=== PATIENT | female | born 1955 | race Caucasian/White ===

== ENCOUNTER 2020-04-20 13:35 | Emergency (ER) | payer MEDICARE, SELFPAY ==
[2020-04-20 13:54] VITALS: BP 138/63; PULSE 71; RESP 18; TEMP 36.6; O2SAT 97
--- NOTE | 2020-04-20 14:06 | ED.WOUNDLAC ---
HPI - Wound/Laceration General Chief Complaint: Wound/Laceration Stated Complaint: fell left eye laceration Time Seen by Provider: 04/20/20 14:06 Source: patient Mode of arrival: ambulatory Limitations: no limitations History of Present Illness HPI narrative: jordan Goldstein is a 64-year-old female who came to express care after a fall [employer] parking lot where she struck her left forehead and has a vertical 2 cm laceration with controlled bleeding. She has no prior medical history for which she takes medication; she denies loss of consciousness, she does not feel dizzy does not have a headache does not have nausea or vomiting, her left knee is bruised more than her right but has no limitation in moving extremities Related Data Home Medications Medication Instructions Recorded Confirmed cetirizine [Zyrtec] 10 mg DAILY 04/20/20 04/20/20 Allergies Allergy/AdvReac Type Severity Reaction Status Date / Time No Known Allergies Allergy Verified 04/20/20 13:38 Review of Systems Review of Systems: Narrative: CONSTITUTIONAL: Denies fever, chills, sweats. EYES: Denies visual changes, redness, discharge. ENT: Denies rhinorrhea, congestion, sore throat, otalgia. CARDIOVASCULAR: Denies chest pain, palpitations, edema. RESPIRATORY: Denies dyspnea, wheezing, cough GASTROINTESTINAL: Denies abdominal pain, nausea, vomiting, diarrhea. GENITOURINARY: Denies dysuria, hematuria, abnormal discharge SKIN: Denies rash or itching. Vertical laceration over left eye about 2 cm in length; superficial abrasions of knees NEUROLOGIC: Denies numbness, or focal weakness. PSYCHIATRIC: Denies anxiety or depression. [facility] Past Medical History Medical History No active medical problems Family History Family History Other No active medical problems Social History Social History (Updated 04/20/20 @ 14:29 by Maria R Lemon CNP) Smoking status: Never smoker Alcohol intake: never Gender identity (if verbalized by the patient): Female Comments At time of signature, I agree with nursing past medical, surgical, social and family history. There is no relevant family history pertinent to the presenting complaint. Exam Narrative: Exam Narrative: GENERAL: This is a well-nourished, well-developed patient, in mild distress. HEAD: normocephalic, no trauma to head EYES: . Sclera clear/white. Vision is grossly intact. EARS: External ears normal, Hearing grossly intact. no drainage or bruising NOSE: External nose normal without nasal discharge, nares without redness, no rhinorrhea. THROAT: Mucous membranes moist, NECK: Neck supple, non-tender CARDIOVASCULAR: Regular rate and rhythm without murmurs, gallops, or rubs. RESPIRATORY: Clear to auscultation. Breath sounds equal bilaterally. No wheezes, rales, or rhonchi. GASTROINTESTINAL: Abdomen soft, non-tender, SKIN: warm, intact with no suspicious lesions or rash, good texture and turgor. Vertical 2 icentimeter laceration, through superficial skin and subcutaneous fat, controlled bleeding; mild abrasion to both knees with no bleeding NEURO: awake, alert, and oriented to person, place and time. There were no obvious focal neurologic abnormalities. Steady gait EXTREMITIES: Normal range of motion. BACK: Nontender without deformity Course Course Emergency Course: Repair of laceration through left eyebrow Tetanus shot given Urgent care given to patient follow-up with PCP Vital Signs Vital signs: Vital Signs Temperature 97.9 F 04/20/20 13:54 Pulse Rate 71 04/20/20 13:54 Respiratory Rate 18 04/20/20 13:54 Blood Pressure 138/63 04/20/20 13:54 Pulse Oximetry 97 04/20/20 13:54 Temperature 97.9 F 04/20/20 13:54 Pulse Rate 71 04/20/20 13:54 Respiratory Rate 18 04/20/20 13:54 Blood Pressure 138/63 04/20/20 13:54 Pulse Oximetry 97 04/20/20 13:54 P
[2020-04-20] MEDS: TETANUS,DIPHTHERIA,AC PERTUSSIS ADULT (0.5 ML) BOOSTRIX IM (14:14)
== END 2020-04-20 14:39 | disposition home or self-care (01) ==
PROVIDERS: Emergency Provider Nurse Practitioner; PCP Family Medicine
DX: S01.112A Laceration without foreign body of left eyelid and periocular area, initial encounter (principal); W19.XXXA Unspecified fall, initial encounter; Z23 Encounter for immunization
CPT/HCPCS: 12011; 90471; 90715; 99212; G0463

== ENCOUNTER 2020-07-28 09:25 | Outpatient (CLI) | payer MEDICARE, SELFPAY ==
--- NOTE | 2020-07-28 09:35 | ECG_ITS ---
Measurements Intervals [place] Rate: 57 P: -17 ME: 173 QRS: 31 QRSD: 99 T: 39 QT: 393 QTc: 384 Interpretive Statements SINUS BRADYCARDIA BASELINE ARTIFACT- I ,II, III, AVL, V4 NORMAL ECG Electronically Signed On 07-28-2020 10:28:59 CHIROPRACTIC DOCTOR by [place] D.O.
== END 2020-07-28 09:26 | disposition home or self-care (01) ==
PROVIDERS: PCP Internal Medicine; Visit Provider Internal Medicine
DX: I49.1 Atrial premature depolarization (principal)
CPT/HCPCS: 93005

== ENCOUNTER → 2020-09-19 10:56 | Outpatient (CLI) | payer MEDICARE, SELFPAY ==
--- NOTE | ~2020-09-19 | DEXA_ITS ---
Bone Density Report Name: Rivka Goldstein Age: 64 Sex: Female Ethnicity: White Date of : 1955 Indication: postmenopausal; screening for osteoporosis; height loss; Referring Provider: JENNIFER FREEDMAN Study: Bone densitometry was performed. Exam Date: September 19, 2020 Accession number: [id number] Bone Density: Region BMD T-score Z-score Classification Femoral Neck (Left) 0.667 -1.6 0.0 Osteopenia Total Hip (Left) 0.830 -0.9 0.4 Normal Femoral Neck (Right) 0.556 -2.6 -1.0 Osteoporosis Total Hip (Right) 0.704 -1.9 -0.6 Osteopenia Total Hip Mean 0.767 -1.4 -0.1 Osteopenia World Health Organization criteria for BMD impression classify patients as: Normal (T-score at or above -1.0), Osteopenia (T-score between -1.0 and -2.5), or Osteoporosis (T-score at or below -2.5). 10-year Fracture Risk: FRAX not reported because: Some T-score for Spine Total or Hip Total or Femoral Neck at or below -2.5 Clinical Information Provided by Patient: Has used the following medications: Vitamin D, Calcium Patient maximum height was 67 Menopause Age: 40 Drinks caffeinated beverages Onset of menses at age 11 Number of children 2 Impression: The patient has osteoporosis, based on the Right Femoral Neck T-score. Discussion: INCREASED RISK OF FRACTURE. BONE DENSITY IS UNDESIRABLY LOW AT ONE OR MORE SKELETAL SITES, CONSISTENT WITH POSTMENOPAUSAL OSTEOPOROSIS. This patient's lowest T-score meets the World Health Organization's (WHO) criteria for osteoporosis at one or more sites (T-score -2.5 or below). In untreated patients, the risk of osteoporotic fracture increases approximately two-fold for each 1.0 SD decrease in T-score. Low bone density is not the only risk factor for fracture; also consider factors such as patient's age, frailty or poor health, risk of falling, risk of injury, previous osteoporotic fracture, family history of osteoporosis, cigarette smoking, low body weight, etc. Not everyone with low bone mineral density has osteoporosis; osteomalacia and other metabolic bone disorders should also be considered. Patients who have osteoporosis should be evaluated for specific diseases and conditions (secondary causes) that may cause or contribute to bone loss. The [place] [employer] Endocrinologists (AACE) and National Osteoporosis Foundation (NOF) recommend pharmacologic intervention for all postmenopausal women whose T-score is in this range. The patient should follow a healthful lifestyle (good nutrition with adequate calcium and vitamin D, and appropriate weight-bearing exercise). Follow-Up: Consider a repeat BMD and Vertebral Fracture Assessment (VFA) exam in 2 years or sooner if medically necessary, to reassess this patient's status. Reported by: DENICE on 09/19/2020 11:22:00 AM.
--- NOTE | ~2020-09-19 | MM_ITS ---
EXAMINATION: MM screening [facility] BI w darryl HISTORY: Screening TECHNIQUE: Craniocaudal and mediolateral oblique 3-D tomosynthesis images were obtained and synthetic 2-D images were generated. CAD analysis was submitted and interpreted. COMPARISON: No prior mammogram is available for comparison at this institution. BREAST PARENCHYMAL COMPOSITION: There are scattered areas of fibroglandular density. FINDINGS: There is no evidence of suspicious mass, calcification, or architectural distortion to sugg est malignancy in either breast. There has been no suspicious interval change. IMPRESSION: 1. No mammographic evidence of malignancy. 2. Recommend routine screening mammography in one year. BI-RADS Category 1: Negative Reviewed, dictated and finalized at location A. SERVICES SPECIALIST
== END ==
PROVIDERS: PCP Internal Medicine; Visit Provider Internal Medicine
DX: Z12.31 Encounter for screening mammogram for malignant neoplasm of breast (principal); Z78.0 Asymptomatic menopausal state; M85.88 Other specified disorders of bone density and structure, other site; M81.0 Age-related osteoporosis without current pathological fracture; M85.851 Other specified disorders of bone density and structure, right thigh
CPT/HCPCS: 77063; 77067; 77080

== ENCOUNTER → 2021-09-27 08:15 | Outpatient (CLI) | payer MEDICARE, SELFPAY ==
--- NOTE | ~2021-09-27 | CT_ITS ---
EXAMINATION: CT brain wo con DATE: 09/27/2021 08:34 INDICATION: Dizziness and giddiness. TECHNIQUE: Computed tomography (CT) of the head was performed without intravenous contrast. The mA wa s adjusted according to patient size. Iterative reconstruction technique was employed. The dose-lengt h product was 599.57 mGy-cm. COMPARISON: None FINDINGS: There is no intracranial hemorrhage, acute infarction, or abnormal intracranial mass lesion . The ventricles are normal in size. The orbits are normal. There is mild mucosal thickening in the p aranasal sinuses. There are small bilateral mastoid effusions. IMPRESSION: 1. Normal brain. Reviewed, dictated and finalized at location A. NEYMAN PIPE WELDER IMPRESSION: 1. Normal brain.
== END ==
PROVIDERS: PCP Internal Medicine; Visit Provider Internal Medicine
DX: R42 Dizziness and giddiness (principal)
CPT/HCPCS: 70450

== ENCOUNTER 2021-10-02 07:19 | Outpatient (CLI) | payer MEDICARE, SELFPAY ==
--- NOTE | 2021-10-02 08:05 | ECHO_ITS ---
Patient Info Name: Rivka Goldstein Age: 65 years : 1955 Gender: Female Ht: 65 in Wt: 170 lbs BSA: 1.90 m2 HR: 54 bpm BP: 140 / 85 mmHg Technical Quality: Good Exam Date: 10/02/2021 8:20 AM Exam Location: [facility] Patient Status: Outpatient Admit Date: 10/02/2021 Staff Ordering Physician: Odin Rodriguez MD Size Mixer: Chas Cameron, QUINTIN, RT Attending Provider: Odin Rodriguez MD Exam Type: CA echo doppler color flow Study Info Indications R06.02 - Shortness of breath Complete two-dimensional, color flow and Doppler transthoracic echocardiogram is performed. Strain analysis performed. Summary 1. Complete two-dimensional, color flow and Doppler transthoracic echocardiogram is performed. 2. Left ventricular chamber dimension is normal. 3. Left ventricular systolic function is normal, estimated at 55-60%. 4. The left ventricular diastolic function is grade I diastolic dysfunction. 5. E/e' 10 is mildly elevated. 6. Global longitudinal strain is normal at -18.3%. 7. 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 8. Bowing of the interatrial septum to the right by 2D and color flow imaging. Left Ventricle E/e' 10 is mildly elevated. Global longitudinal strain is normal at -18.3%. Left ventricular chamber dimension is normal. Left ventricular systolic function is normal, estimated at 55-60%. The left ventricular diastolic function is grade I diastolic dysfunction. Right Ventricle Right ventricular systolic function is normal and with normal TAPSE 2.0 cm. Right ventricular chamber dimension is normal. Left Atria Left atrial chamber dimension is normal. Right Atria Right atrial chamber dimension is normal. Atrial Septum Interatrial septal aneurysm with no obvious evidence of shunting by color doppler. Bowing of the interatrial septum to the right by 2D and color flow imaging. Aortic Valve The aortic valve is trileaflet. There is no aortic valve stenosis. There is no aortic valve regurgitation. Pulmonic Valve There is no pulmonic regurgitation. Mitral Valve There is no mitral valve stenosis. There is no mitral valve regurgitation. Tricuspid Valve There is no tricuspid valve regurgitation. Pericardium/Pleural There is no pericardial effusion. Inferior Vena Cava Normal inferior vena cava with >50% collapse upon inspiration consistent with normal right atrial pressure, 5 mmHg. Aorta The aortic root size at the sinus of Valsalva is normal. Left Ventricular Outflow Tract Name Value Normal LVOT 2D LVOT Diameter 2.0 cm LVOT Doppler LVOT Peak Gradient 5 mmHg LVOT Mean Gradient 2 mmHg LVOT VTI 27 cm LVOT VTI/AV VTI Ratio 0.9 LVOT Stroke Volume 84 ml LVOT CO 4.7 l/min LVOT CI 2.5 l/min/m2 Mitral Valve Name Mia
== END 2021-10-02 07:20 | disposition home or self-care (01) ==
LOC: ANHCARD 07:22
PROVIDERS: PCP Internal Medicine; Visit Provider Internal Medicine
DX: I49.1 Atrial premature depolarization (principal); I95.1 Orthostatic hypotension
CPT/HCPCS: 93306

== ENCOUNTER → 2021-11-01 12:37 | Outpatient (CLI) | payer MEDICARE, SELFPAY ==
--- NOTE | ~2021-11-01 | MM_ITS ---
EXAMINATION: MM screening [facility] BI w darryl HISTORY: Screening mammogram TECHNIQUE: Craniocaudal and mediolateral oblique 3-D tomosynthesis images were obtained and synthetic 2-D images were generated. CAD analysis was submitted and interpreted. COMPARISON: 09/19/2020 bilateral screening mammogram BREAST PARENCHYMAL COMPOSITION: There are scattered areas of fibroglandular density. FINDINGS: There is no evidence of suspicious mass, calcification, or architectural distortion to sugg est malignancy in either breast. There has been no suspicious interval change. IMPRESSION: 1. No mammographic evidence of malignancy. 2. Recommend routine screening mammography in one year. BI-RADS Category 1: Negative Reviewed, dictated and finalized at location A.
== END ==
PROVIDERS: PCP Internal Medicine; Visit Provider Student in an Organized Health Care Education/Training Program
DX: Z12.31 Encounter for screening mammogram for malignant neoplasm of breast (principal)
CPT/HCPCS: 77063; 77067

== ENCOUNTER → 2022-04-06 05:21 | Outpatient (CLI) | payer MEDICARE, SELFPAY ==
[2022-04-06 11:52] LABS: SARS-CoV-2 RNA PCR Negative
== END ==
PROVIDERS: PCP Internal Medicine; Visit Provider Internal Medicine
DX: R68.89 Other general symptoms and signs (principal); Z20.822 Contact with and (suspected) exposure to COVID-19
CPT/HCPCS: C9803; U0003; U0005

== ENCOUNTER → 2022-12-24 10:24 | Outpatient (CLI) | payer MEDICARE, SELFPAY ==
--- NOTE | ~2022-12-24 | MM_ITS ---
EXAMINATION: MM screening [facility] BI w darryl HISTORY: Screening TECHNIQUE: Craniocaudal and mediolateral oblique 3-D tomosynthesis images were obtained and synthetic 2-D images were generated. CAD analysis was submitted and interpreted. COMPARISON: Comparison to multiple prior studies sequentially, with oldest reviewed study dated 07/2020. BREAST PARENCHYMAL COMPOSITION: There are scattered areas of fibroglandular density. FINDINGS: There is no evidence of suspicious mass, calcification, or architectural distortion to sugg est malignancy in either breast. There has been no suspicious interval change. IMPRESSION: 1. No mammographic evidence of malignancy. 2. Recommend routine screening mammography in one year. BI-RADS Category 1: Negative Reviewed, dictated and finalized at location A.
== END ==
PROVIDERS: PCP Family Medicine; Visit Provider Registered Nurse
DX: Z12.31 Encounter for screening mammogram for malignant neoplasm of breast (principal)
CPT/HCPCS: 77063; 77067

== ENCOUNTER → 2022-12-27 10:14 | Outpatient (CLI) | payer MEDICARE, SELFPAY ==
--- NOTE | ~2022-12-27 | CT_ITS ---
EXAMINATION: CT cervical spine wo con DATE: 12/27/2022 10:31 INDICATION: Disease of spinal cord, unspecified. TECHNIQUE: Computed tomography (CT) of the cervical spine was performed without intravenous contrast. Automated exposure control and iterative reconstruction technique were employed. The dose-length pro duct was 298.26 mGy-cm. COMPARISON: None FINDINGS: The visualized portions of the lung apices demonstrate emphysema and mild scarring. There i s kyphosis of cervical spine. There is 2 mm retrolisthesis of C3 on C4. There are changes of anterior fusion procedure from C4 to C6 with healed interbody bone graft and anterior plate and screws. There is moderately decreased disc height at C3-C4 and severely decreased disc height at C6-C7. The follow ing disc levels are specifically discussed: C2-C3: There is moderate left uncovertebral joint osteoarthritis. There is moderate right and severe left facet joint osteoarthritis. There is moderate left neural foraminal stenosis. There is no centra l canal stenosis. C3-C4: There is severe right and moderate left uncovertebral joint osteoarthritis. There is severe ri ght and moderate left facet joint osteoarthritis. There is moderate bilateral neural foraminal stenos is. There is moderate central canal stenosis. C4-C5: There is severe bilateral uncovertebral joint hypertrophy. There is mild bilateral facet joint osteoarthritis. There is moderate bilateral neural foraminal stenosis. There is mild central canal s tenosis. C5-C6: There is severe bilateral uncovertebral joint hypertrophy. There is moderate bilateral facet j oint hypertrophy. There is moderate right and mild left neural foraminal stenosis. There is mild cent ral canal stenosis. C6-C7: There is severe bilateral uncovertebral joint osteoarthritis. There is mild right and moderate left facet joint osteoarthritis. There is moderate right and mild left neural foraminal stenosis. Th ere is mild central canal stenosis. C7-T1: There is no uncovertebral joint osteoarthritis. There is moderate bilateral facet joint osteoa rthritis. There is mild left neural foraminal stenosis. There is no central canal stenosis. IMPRESSION: 1. Severe cervical spondylosis. 2. Anterior fusion procedure from C4 to C6. Reviewed, dictated and finalized at location A.
== END ==
PROVIDERS: PCP Family Medicine; Visit Provider Nurse Practitioner
DX: G95.9 Disease of spinal cord, unspecified (principal); M47.892 Other spondylosis, cervical region; Z98.1 Arthrodesis status
CPT/HCPCS: 72125

== ENCOUNTER → 2023-02-20 10:16 | Outpatient (CLI) | payer MEDICARE, SELFPAY ==
--- NOTE | ~2023-02-20 | DEXA_ITS ---
Bone Density Report Name: LISSETH THAO Age: 67 Sex: Female Ethnicity: White Date of : 1955 Indication: osteopenia; height loss; prior fracture; postmenopausal Referring Provider: MANDY CUEVA Study: Bone densitometry was performed. Exam Date: February 20, 2023 Accession number: [id number] Bone Density: Region BMD T-score Z-score Classification Femoral Neck (Left) 0.629 -2.0 -0.2 Osteopenia Total Hip (Left) 0.806 -1.1 0.3 Osteopenia Femoral Neck (Right) 0.538 -2.8 -1.0 Osteoporosis Total Hip (Right) 0.696 -2.0 -0.6 Osteopenia Total Hip Mean 0.751 -1.6 -0.2 Osteopenia World Health Organization criteria for BMD impression classify patients as: Normal (T-score at or above -1.0), Osteopenia (T-score between -1.0 and -2.5), or Osteoporosis (T-score at or below -2.5). 10-year Fracture Risk: FRAX not reported because: Some T-score for Spine Total or Hip Total or Femoral Neck at or below -2.5 Previous Exams: Region Exam Age BMD T-score BMD Change BMD Change Date g/cm2 vs Baseline vs Previous Total Hip(Left) 02/20/2023 67 0.806 -1.1 -0.024 -0.024 09/19/2020 64 0.830 -0.9 Total Hip(Right) 02/20/2023 67 0.696 -2.0 -0.009 -0.009 09/19/2020 64 0.704 -1.9 *Denotes significance at 95% confidence level, LSC for Total Hip = 0.027 g/cm2 Clinical Information Provided by Patient: Has had a low trauma fracture Has used the following medications: Fosamax (i.e. alendronate), Vitamin D, Calcium Patient maximum height was 66.0 Menopause Age: 40 Drinks caffeinated beverages Onset of menses at age 11 Number of children 2 Impression: The patient has established osteoporosis, based on the Right Femoral Neck T-score and the existence of a prior fracture. The patient has risk factors, including: previous fracture. No significant bone loss was observed. Discussion: HIGH RISK OF FRACTURE. BONE DENSITY IS UNDESIRABLY LOW AT ONE OR MORE SKELETAL SITES, CONSISTENT WITH POSTMENOPAUSAL OSTEOPOROSIS. This patient's lowest T-score, in a patient who has previously fractured, meets the World Health Organization's (WHO) criteria for severe osteoporosis. In untreated patients, the risk of osteoporotic fracture increases approximately two-fold for each 1.0 SD decrease in T-score. Low bone density is not the only risk factor for fracture; also consider factors such as patient's age, frailty or poor health, risk of falling, risk of injury, previous osteoporotic fracture, family history of osteoporosi
== END ==
PROVIDERS: PCP Family Medicine; Visit Provider Nurse Practitioner
DX: M81.0 Age-related osteoporosis without current pathological fracture (principal)
CPT/HCPCS: 77080

== ENCOUNTER 2023-05-27 15:39 | Outpatient (CLI) | payer MEDICARE, SELFPAY ==
[2023-05-27 17:19] LABS: Anion Gap 8 mmol/L (8-16); Blood Urea Nitrogen 36 mg/dL (7-17); Calcium 9.5 mg/dL (8.4-10.2); Carbon Dioxide 25 mmol/L (22-30); Chloride 104 mmol/L (98-107); Estimated Glomerular Filt Rate > 60; Glucose 85 mg/dL (65-110); Potassium 4.9 mmol/L (3.4-5.0); Sodium 137 mmol/L (137-145)
== END 2023-05-27 15:40 | disposition home or self-care (01) ==
PROVIDERS: PCP Family Medicine; Visit Provider Family Medicine
DX: E87.5 Hyperkalemia (principal)
CPT/HCPCS: 36415; 80048

== ENCOUNTER → 2023-07-03 08:10 | Outpatient (CLI) | payer MEDICARE, SELFPAY ==
--- NOTE | ~2023-07-03 | CT_ITS ---
CT Scan of the Chest without Contrast: Clinical Indication: Lung cancer screening, personal history of nicotine dependence Technique: Contiguous sections were acquired throughout the chest without intravenous contrast. Dose reduction technique was used on this scan by utilizing automated exposure control and iterative recon struction technique. The dose-length product (DLP) was 84.95 mGy-cm. Findings: There is no evidence of any significant mediastinal, hilar or axillary lymphadenopathy. The mediastin al soft tissues appear normal. There is no evidence of pleural or pericardial effusion. Moderate emphysema present. Calcified left upper lobe granuloma present. 3 mm left lower lobe pulmona ry nodule present peripherally. Images through the upper abdomen reveal calcified gallstone. Impression: Lung RADS 2: Benign appearance. 12 month follow-up screening CT advised. Reviewed, dictated and finalized at [facility]. [employer] [employer] Impression: Lung RADS 2: Benign appearance. 12 month follow-up screening CT advised.
== END ==
PROVIDERS: PCP Family Medicine; Visit Provider Family Medicine
DX: Z12.2 Encounter for screening for malignant neoplasm of respiratory organs (principal); Z87.891 Personal history of nicotine dependence
CPT/HCPCS: 71271

== ENCOUNTER 2024-01-24 09:57 | Outpatient (CLI) | payer MEDICARE, SELFPAY ==
--- NOTE | ~2024-01-24 | MM_ITS ---
EXAMINATION: MM screening [facility] BI w darryl HISTORY: Screening mammogram TECHNIQUE: Craniocaudal and mediolateral oblique 3-D tomosynthesis images were obtained and synthetic 2-D images were generated. CAD analysis was submitted and interpreted. COMPARISON: 12/24/2022, 11/01/2021, 09/19/2020 BREAST PARENCHYMAL COMPOSITION:Not Dense. There are scattered areas of fibroglandular density. FINDINGS: No suspicious mass, calcification, or architectural distortion are identified in either bert ast to suggest malignancy. There has been no suspicious interval change. IMPRESSION: No mammographic evidence of malignancy. Recommend routine screening mammography in one year. BI-RADS Category 1: Negative Reviewed, dictated and finalized at location .
== END 2024-01-24 09:58 ==
LOC: MICIMG 09:58
PROVIDERS: PCP Family Medicine; Visit Provider Nurse Practitioner Family
DX: Z12.31 Encounter for screening mammogram for malignant neoplasm of breast (principal)
CPT/HCPCS: 77063; 77067

== ENCOUNTER 2024-10-19 09:55 | Outpatient (CLI) | payer MEDICARE, SELFPAY ==
--- NOTE | ~2024-10-19 | CT_ITS ---
CT Scan of the Chest without Contrast: Clinical Indication: Lung cancer screening, nicotine dependence Technique: Contiguous sections were acquired throughout the chest without intravenous contrast. Dose reduction technique was used on this scan by utilizing automated exposure control and iterative recon struction technique. The dose-length product (DLP) was 121.81 mGy-cm. COMPARISON: 07/03/2023 Findings: There is no evidence of any significant mediastinal, hilar or axillary lymphadenopathy. Mild coronary artery calcification present. There is no evidence of pleural or pericardial effusion. The lungs are clear. No pulmonary nodules or infiltrates are noted. There is moderate emphysema. Images through the upper abdomen reveal calcified gallstones. Impression: Lung RADS 1: Negative. [address] advised. Moderate emphysema. Cholelithiasis. Reviewed, dictated and finalized at [facility]. Impression: Lung RADS 1: Negative. [address] advised. Moderate emphysema. Cholelithiasis.
--- NOTE | ~2024-10-19 | MR_ITS ---
MRI of the lumbar spine Clinical History: Right foot drop Technique: Axial T2-weighted images, and sagittal T1-weighted, T2-weighted, and T2 fat-sat images wer e acquired. Findings: There is no acute fracture identified. There is 9 mm anterolisthesis of L5 over S1. There i s posterior fusion from L4 through S1, bilateral rods and transpedicular screws present. Probable pos terior decompression at L4 and L5. No suspicious bone marrow signal abnormality seen. At L1-L2, there is advanced degenerative disc narrowing. There is mild disc bulge with moderate to ad vanced facet arthropathy. There is mild central canal stenosis. There is severe bilateral neural fora sachin compress. At L2-L3, there is minimal disc bulge with moderate facet arthropathy. There is minimal central canal stenosis. There is minimal bilateral neural foraminal narrowing. At L3-L4, there is mild degenerative disc narrowing. There is disc bulge and severe facet arthropathy , resulting in severe spinal canal stenosis/thecal sac compression. There is moderate right neural fo raminal narrowing, and mild left neural foraminal narrowing. At L4-L5, there is mild disc bulge. No canal stenosis. Neural foramina are probably preserved. At L5-S1, there is disc bulge/uncovering with posterior decompression. No spinal canal stenosis. Ther e is probable moderate to severe bilateral neural foraminal narrowing. Paravertebral soft tissues are otherwise unremarkable. Impression: Postoperative change from L4 through S1, as above, with underlying 9 mm anterolisthesis of L5 over S1 . Moderate to advanced degenerative spondylosis, worst at L3-L4. Please see details above. Reviewed, dictated and finalized at [facility]. Impression: Postoperative change from L4 through S1, as above, with underlying 9 mm anterol isthesis of L5 over S1. Moderate to advanced degenerative spondylosis, worst at L3-L4. Please see óscar hunt above.
== END 2024-10-19 09:56 | disposition home or self-care (01) ==
PROVIDERS: PCP Family Medicine; Visit Provider Family Medicine
DX: Z12.2 Encounter for screening for malignant neoplasm of respiratory organs (principal); Z87.891 Personal history of nicotine dependence; M21.371 Foot drop, right foot; M54.50 Low back pain, unspecified; R29.898 Other symptoms and signs involving the musculoskeletal system; M47.816 Spondylosis without myelopathy or radiculopathy, lumbar region; J43.9 Emphysema, unspecified; K80.20 Calculus of gallbladder without cholecystitis without obstruction
CPT/HCPCS: 71271; 72148

== ENCOUNTER 2024-12-12 10:54 | Outpatient (CLI) | payer MEDICARE, SELFPAY ==
--- OUTSIDE RECORDS SUMMARY | 2024-12-12 11:05 | XMS_ITS | Continuity of Care Document ---
Author Organization [facility] Address [address] [place] [address] [facility] [address] [place] [address] Phone Care Team Providers Care Meat And Seafood Manager Name Role Phone Gwendolyn Michelle Unavailable Unavailable Procedures Procedure Date Eye Exam, New Patient Advance Directives Directive Yes / No Effective Date File Name No Information Encounters Encounter Description Practice Location Reason(s) For Visit Diagnoses Date Provider Providers Copied on Encounter [facility], [id number] [place] [address] [address], [place], [place], [id number], [place] tel:[phone] [facility] No Information [address] [place] , [address], [place], [address], [place]. tel:[phone] Referring Provider: Sammy Wade MD, [address] [place] [address], [place], [address]. tel:[phone] Family History Family Member Type Diagnosis Age At Onset No Information Payers Payer name Insurance type Covered democrat ID Authoriza tion(s) No Information Social History Type Description Quantity Date Captured Comments Sex Female Smoking Status No Information Chief Complaint And Reason For Visit No Information Reason For Referral Reason For Referral No Information History Of Present Illness Encounter Date Complaint History Of Prese nt Illness No Information Functional Status Date Functional Assessmen t No Information Instructions Date Instruction Additional Infor mation No Information Assessments Type Assessment Date No Information Patient Care Teams Name Effective Dates (start - stop) Status Members No Information
--- OUTSIDE RECORDS SUMMARY | 2024-12-12 11:06 | XMS_ITS | Encounter Summary ---
Author Organization [facility] Address [address] [place] [address] Care Team Providers Care Recreation Establishment Manager Name Role Phone Neel Ortiz MD Primary Care Provider [phone] Encounter Details Date Type Department Care Team (Late st Contact Info) Description 12/09/2024 External Device Data [facility] ABSTRACTION Provider, Abstract NO ADDRESS ON FILE Social History Tobacco Use Types Packs/Day Years Used Date Smoking Tobacco: Former Cigarettes 1976 Smokeless Tobacco: Never Alcohol Use Standard Drinks/Week Comments Never 0 (1 standard drink = 0.6 oz pur e alcohol) Feeling Safe Answer Date Recorded Are you in a relationship wi th someone who hurts you emotionally and/or physically? No 11/17/2024 Comments No Sex and Gender Information Value Date Recorded Sex Assigned at Not on file Legal Sex Female 2:09 PM CDT Gender Identity Not on file Sexual Orientation Not on file documented as of this encounter Plan of Treatment Upcoming Encounters Date Type Department Care Team (Latest Contact Info) Description 12/28/2024 9:00 AM CDT Hospital En[facility] [address] [place] [address] Alli Galindo MD [address] [facility] [address] [place] [address] 12/28/2024 9:00 AM CDT - 12/28/2024 12:23 PM CDT Surgery [facility] [address] [place] [address] Alli Galindo MD [address] [facility] [address] [place] [address] POSTERIOR LUMBAR DECOMPRESSION AND FUSION L3 TO L4, WITH INSTRUMENTATION AND REVISION OF PRIOR HARDWARE L4 TO S1 AND REEXPLORATION/DECOMPRE SSION RIGHT L5S1 Scheduled Procedures Name Priority Associated Diagnoses Date/Ti me LUMBAR FUSION POSTERIOR - MULTILEVEL M48.062 12/28/2024 9:00 AM CDT documented as of this encounter Visit Diagnoses Not on filedocumented in this encounter Care Teams Recreation Establishment Manager Relationship Specialty Start Date End Date Neel Ortiz MD [address] [place] [address] PCP - General Family Practice 10/24/23 documented as of this encounter
--- OUTSIDE RECORDS SUMMARY | 2024-12-12 11:06 | XMS_ITS | Clinical Summary ---
Author Organization [facility] Address [address] [place] [address] Care Team Providers Care Loss Mitigation Specialist Name Role Phone Unavailable Primary Care Provider Unavailabl e Source Comments [facility],non-owned Affiliates and Associated Physician Practices is amultiple site organization consisting of ambulatory clinics and hospital sitesin [place], [place], [place] and [place]. This disclosure is being madepursuant to the Care Everywhere program and may not contain all information available regarding this patient. Last updated 18.[facility] Social History Tobacco Use Types Packs/Day Years Used Date Smoking Tobacco: Never Assessed Comments Unknown Sex and Gender Information Value Date Recorded Sex Assigned at Not on file Legal Sex Female 3:27 PM JOURNEYMAN OPERATOR ASSISTANT Gender Identity Not on file Sexual Orientation Not on file Plan of Treatment Health Maintenance Due Date Last Done Comments BONE DENSITY TESTING 1955 COLOGUARD (AGES 45-75) - COL ON CA SCREENING 1955 COLON MONITORING 1955 COLONOSCOPY - COLON CA SCREENING 1953 CT COLONOGRAPHY - COLON CA SCREENING 1955 Colorectal Cancer Screening 1955 FIT - COLON CA SCREENING 1953 FLEX SIG - COLON CA SCREENING 1953 LIPID TESTING 1955 MAMMOGRAM 1953 HEPATITIS C SCREENING 10/21/1971 DTAP/TDAP/TD VACCINES (1 - Tdap) 1972 PNEUMOCOCCAL VACCINE 50+ (1 of 1 - PCV) 10/26/2003 ZOSTER VACCINE (1 of 2) 10/26/2003 COVID-19 VACCINE ( - 2023-2 5 season) 2024 DEPRESSION SCREENING 07/22/2024 INFLUENZA VACCINE (Season Ended) 2025 Respiratory Syncytial Virus (RSV) Vaccine Pt: or over 60 yrs (1 - 1-dose 75+ series) 2028 HEPATITIS B VACCINE Aged Out No longe r eligible based on patient's age to complete this topic HIB VACCINE Aged Out No longer eligi ble based on patient's age to complete this topic HPV VACCINE Aged Out No longer eligi ble based on patient's age to complete this topic MENINGOCOCCAL (Group B) VACC INE SHARED DECISION-MAKING Aged Out No longer eligibl e based on patient's age to complete this topic MENINGOCOCCAL GROUPS A/C/Y/W VACCINE Aged Out No longer eligible b ased on patient's age to complete this topic Insurance [employer]
--- OUTSIDE RECORDS SUMMARY | 2024-12-12 11:06 | XMS_ITS | Referral Summary ---
Author Organization [facility] [address] Address [address] [place] [address] Care Team Providers Care Air Gun Operator Name Role Phone Neel Ortiz MD Primary Care Provider [phone] Allergies No known active allergies Medications naproxen sodium 220 mg capsule Take by mouth as needed Active cetirizine (ZyrTEC) 10 mg tablet Take 1 tablet (10 mg total) by mouth daily Active rosuvastatin (CRESTOR) 10 mg tablet Take 1 tablet (10 mg total) by mouth daily 10/19/2020 Active alendronate (FOSAMAX) 70 mg tablet TAKE 1 TABLET BY MOUTH WEEKLY 03/11/2021 Active Active Problems Problem Noted Date Diagnosed Date Weakness of right arm 03/07/2023 Assessment & Plan (03/07/2023 3:08 PM CDT): Ms. Goldstein has right arm and leg weakness with balance issues that have been present since 2019 and are worsening. Head CT did not show any signs of stroke or mass lesion in September of 2021. Because of her spinal cord stimulator, an MRI could not be obtained. 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 She has a thoracic spinal cord stimulator placed as well. Given the symptoms in the right arm and right leg, we will get a CT myelogram of the cervical and thoracic spine to look for any cord compression. We will speak to her by phone about the results and further recommendations. If there is no significant cord compression to explain her symptoms, she will likely need formal evaluation by Neurology. Bilateral impacted cerumen 12/11/2022 Assessment & Plan (12/11/2022 8:18 AM CDT): Was partially obstructing each ear canal. Removed Without difficulty. 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 Assessment & Plan (12/11/2023 8:56 AM CDT): Unchanged. Needs no intervention. Assessment & Plan (08/27/2023 9:06 AM MILK VENDOR): Unchanged. Possibly sinusitis. Will treat. Assessment & Plan (06/12/2023 9:14 AM MILK VENDOR): Needs no intervention. Assessment & Plan (12/11/2022 8:18 AM CDT): Unchanged and overall asymptomatic Assessment & Plan (06/12/2022 8:53 PM MILK VENDOR): Unchanged and clinically not bothering her. I have recommended no intervention. Dysfunction of right eustachian tube 06/12/2022 Assessment & Plan (06/16/2024 5:57 PM MILK VENDOR): The right ear looks good. Tubes in good position. No problems noted. I recommended a follow up in approximately six months. Assessment & Plan (12/11/2023 8:56 AM CDT): Her left ear looks fine. Still has a tube on the right side. At this point there is no need for further intervention. She is going to follow up in about 6 months to check the right ear. Assessment & Plan (08/27/2023 9:06 AM MILK VENDOR): I recommended a myringotomy on the left side. No tube was placed today. She understands that if her symptoms recur she can come back and we would probably put a tube in that case. Otherwise everything seems be okay I will see her at her regularly scheduled appointment in November. Assessment & Plan (06/12/2023 9:15 AM MILK VENDOR): The T-tube is in good position and appears to be functioning well. Recommended keeping it in place. Follow up in 6 months. Assessment & Plan (12/11/2022 8:19 AM CDT): Tube is still in good position and functioning normally. I recommended a follow- up in about 6 months to check this. He understands. Assessment & Plan (06/12/2022 8:53 PM MILK VENDOR): Her ear looks pretty good. Tube is still in good position. I recommended continued surveillance and would like to see her in about 6 months. She is fine with that. Impacted cerumen of right ear 06/12/2022 Assessment & Plan (06/12/2023 9:15 AM MILK VENDOR): This was partially occluding the ear canal. Removed without difficulty. Assessment & Plan (06/12/2022 8:54 PM MILK VENDOR): It was quite a bit of wax buildup in the canal on the right side. I had to remove this to see the tube beneath it. Everything looks fine otherwise. Social History Tobacco Use Types Packs/Day Years Used Date Smoking Tobacco: Former Cigarettes Vaping Smokeless Tobacco: Never Tobacco Cessation:Counseling Given: Not Answered Alcohol Use Standard Drinks/Week Comments Not Currently 0 (1 standard drink = 0.6 oz pur e alcohol) AUDIT-C Answer Date Recorded Q1: How often do you have a drink containing alc ohol? Never 03/07/2023 Average Number of Drinks Not on file 023 Frequency of Binge Drinking Not on file 02/19 PHQ-2 Answer Date Recorded PHQ-2 Total Score (If total score is 3 or more points, staff should administer the PHQ-9) 0 03/07/2023 Comments Unknown Sex and Gender Information Value Date Recorded Sex Assigned at Not on file Legal Sex Female 10:47 AM MILK VENDOR Gender Identity Not on file Sexual Orientation Not on file Last Filed Vital Signs Vital Sign Reading Time Taken Comments Blood Pressure 92/57 03/07/2023 2:32 PM CDT Pulse 69 03/07/2023 2:32 PM CDT Temperature 36.7 C (98.1 F) 12/06/2020 8:34 AM CDT Respiratory Rate 20 06/16/2024 9:19 AM MILK VENDOR Oxygen Saturation - - Inhaled Oxygen Concentration - - Weight 77.1 kg (170 lb) 06/16/2024 9:19 AM MILK VENDOR Height 167.6 cm (5' 6 ) 06/16/2024 9:19 AM MILK VENDOR Body Mass Index 27.44 06/16/2024 9:19 AM MILK VENDOR Plan of Treatment Not on file Insurance [employer] GOLD [address] [place] [id number] Care Teams Air Gun Operator Relationship Specialty Start Date End Date Neel Ortiz MD PCP - General Family Practice 03/07/23
--- OUTSIDE RECORDS SUMMARY | 2024-12-12 11:06 | XMS_ITS | Encounter Summary ---
Author Organization [facility] Address [address] [place] [address] Care Team Providers Care Workplace Trainer And Assessor Name Role Phone Neel Ortiz MD Primary Care Provider [phone] Reason for Visit * Reason Onset Date Comments Discharged from therapy 12/03/2024 Encounter Details Date Type Department Care Team (Late st Contact Info) Description 12/03/2024 Telephone [facility] [address] [place] [address] Alli Galindo MD [address] [facility] [address] [place] [address] Discharged from therapy Social History Tobacco Use Types Packs/Day Years [...] on file documented as of this encounter Miscellaneous Notes * Telephone Encounter - Marlyn Yousif - 12/11/2024 10:59 AM CDT Aldair Aldair * Telephone Encounter - Marlyn Yousif - 12/11/2024 9:31 AM CDT Patient called and she is going to [facility] and [facility] nurse already faxed orders. * Telephone Encounter - Marlyn Yousif - 12/10/2024 4:41 PM CDT Patient made aware. She will call [facility]. She is going to ask if she can just go to [facility] for labs since she doesn't need repeat EKG. * Telephone Encounter - Marlyn Yousif - 12/09/2024 11:55 AM CDT Patient rescheduled surgery for 12/28/24. Labs were completed 11/17/24. Do you want new preop labs? * Telephone Encounter - Marlyn Yousif - 12/03/2024 1:[address] Galindo, would you like to see this patient before rescheduling? She has Deborah, ABIEL. * Telephone Encounter - Desiree Vazquez (Monda) - 12/03/2024 1:22 PM CDT No, not unless want to see her before rescheduling * Telephone Encounter - Marlyn Yousif - 12/03/2024 1:17 PM CDT Patient has been discharged from therapy. Discharge due to: Patient is not appropriate for PT care. Does she need an appt before we reschedule surgery, for auth purposes? documented in this encounter Plan of Treatment Upcoming Encounters Date Type Department Care Team (Latest Contact Info) Description 12/28/2024 9:00 AM CDT Hospital Encounter [facility] [address] [place] [address] Alli Galindo MD [address] [facility] [address] [place] [address] 12/28/2024 9:00 AM CDT - 12/28/2024 12:23 PM CDT Surgery [facility] [address] [place] [address] Alli Galindo MD [address] [address] POSTERIOR LUMBAR DECOMPRESSION AND FUSION L3 TO L4, WITH INSTRUMENTATION AND REVISION OF PRIOR HARDWARE L4 TO S1 AND REEXPLORATION/DECOMPRE SSION RIGHT L5S1 Scheduled Procedures Name Priority Associated Diagnoses Date/Ti me LUMBAR FUSION POSTERIOR - MULTILEVEL M48.062 12/28/2024 9:00 AM CDT documented as of this encounter Visit Diagnoses Not on filedocumented in this encounter Care Teams Workplace Trainer And Assessor Relationship Specialty Start Date End Date Neel Ortiz MD [address] [place] [address] PCP - General Family Practice 10/24/23 documented as of this encounter
--- OUTSIDE RECORDS SUMMARY | 2024-12-12 11:06 | XMS_ITS | Encounter Summary ---
Author Organization [facility] Address [address] [place] [address] Care Team Providers Care Relationship Management Lead Name Role Phone Neel Ortiz MD Primary Care Provider [phone] Encounter Details Date Type Department Care Team (Late st Contact Info) Description 12/11/2024 Orders Only [facility] Neurosurgery [facility] [address] [facility] [address] [place] [address] Alli Galindo MD [address] [facility] [address] [place] [address] Lumbar stenosis with neurogenic claudication (Primary Dx); Failed spinal cord stimulator, initial encounter; Preop testing; Pain in extremity, unspecified extremity Social History Tobacco Use Types Packs/Day Years [...] CDT Hospital Encounter [facility] [address] [place] [address] Alli Galindo MD [address] [facility] [address] [place] [address] 12/28/2024 9:00 AM CDT - 12/28/2024 12:23 PM CDT Surgery [facility] [address] [place] [address] Alli Galindo MD [address] [facility] [address] [place] [address] POSTERIOR LUMBAR DECOMPRESSION AND FUSION L3 TO L4, WITH INSTRUMENTATION AND REVISION OF PRIOR HARDWARE L4 TO S1 AND REEXPLORATION/DECOMPRE SSION RIGHT L5S1 Scheduled Orders Name Type Priority Associated Diagnoses Orde r Schedule CBC WITH DIFFERENTIAL Lab Routine Lumbar stenosis with neurogenic claudication Failed spinal cord stimulator, initial encounter Preop testing Expected: 12/11/2024, Expires: 12/11/2025 BASIC METABOLIC PANEL Lab Routine Lumbar stenosis with neurogenic claudication Failed spinal cord stimulator, initial encounter Preop testing Expected: 12/11/2024, Expires: 12/11/2025 PTT Lab Routine Lumbar stenosis with neurogenic claudication Failed spinal cord stimulator, initial encounter Preop testing Pain in extremity, unspecified extremity Expected: 12/11/2024, Expires: 12/11/2025 PROTIME-INR Lab Routine Lumbar stenosis with neurogenic claudication Failed spinal cord stimulator, initial encounter Preop testing Pain in extremity, unspecified extremity Expected: 12/11/2024, Expires: 12/11/2025 URINALYSIS WITH REFLEX CULTURE Lab Routine Lumbar stenosis with neurogenic claudication Failed spinal cord stimulator, initial encounter Preop testing Expected: 12/11/2024, Expires: 12/11/2025 Scheduled Procedures Name Priority Associated Diagnoses Date/Ti me LUMBAR FUSION POSTERIOR - MULTILEVEL M48.062 12/28/2024 9:00 AM CDT documented as of this encounter Visit Diagnoses Diagnosis Lumbar stenosis with neurogenic claudication- Primary Spinal stenosis, lumbar region, with neurogenic claudication Failed spinal cord stimulator, initial encounter Preop testing Preoperative examination, unspecified Pain in extremity, unspecified extremity documented in this encounter Care Teams Relationship Management Lead Relationship Specialty Start Date End Date Neel Ortiz MD [address] [place] [address] PCP - General Family Practice 10/24/23 documented as of this encounter
--- OUTSIDE RECORDS SUMMARY | 2024-12-12 11:06 | XMS_ITS | Clinical Summary ---
Author Organization [facility] Address [address] [place] [address] Phone Care Team Providers Care Mink Slicer Name Role Phone Neel Ortiz MD Primary Care Provider [phone] Allergies No known active allergies Medications alendronate (FOSAMAX) 70 mg tablet Take 70 mg by mouth every 7 days. saturday Active cetirizine (ZyrTEC) 10 mg tablet Take 10 mg by mouth daily. Active lisinopriL (PRINIVIL) 10 mg tablet Take 10 mg by mouth daily. Active rosuvastatin (CRESTOR) 10 mg tablet Take 10 mg by mouth daily. 4 Active calcium as CARBONATE-vitamin D3 (CALTRATE 600+D) 600 mg-5 mcg (200 unit) Tablet Take 2 Tablets by mouth daily. Active cholecalciferol, Vitamin D3, 125 mcg (5,000 unit) Capsule Take 5,000 Units by mouth daily. Active ferrous sulfate 325 mg (65 mg iron) tablet Take 325 mg by mouth daily. Active ofloxacin (OCUFLOX) 0.3 % solution Administer 1 Drop in right eye 3 times daily. 5 Active ketorolac tromethamine (ACULAR) 0.5 % solution Administer 1 Drop in right eye 3 times daily. 5 Active prednisoLONE acetate (PRED FORTE) 1 % suspension Administer 1 Drop in right eye 3 times daily. Active naproxen sodium (ALEVE) 220 mg Capsule Take 220 mg by mouth every 12 hours as needed. Active Active Problems Problem Noted Date Diagnosed Date Cervical myelopathy 11/06/2023 Failed spinal cord stimulator, initial encounter 11/06/2023 Encounters Date Type Department Care Team Description 12/11/2024 Orders Only [facility] [address] [place] [address] Phillip Galindo MD Lumbar stenosis with neurogenic claudication (Primary Dx); Failed spinal cord stimulator, initial encounter; Preop testing; Pain in extremity, unspecified extremity 12/10/2024 External Device Data [facility] ABSTRACTION Provider, Abstract 12/09/2024 External Device Data [facility] ABSTRACTION Provider, Abstract 12/08/2024 External Device Data [facility] ABSTRACTION Provider, Abstract 12/03/2024 Telephone [facility] Neurosurgery [address] [place] [address] Phillip Galindo MD Discharged from therapy 12/03/2024 Abstract [facility] Neurosurgery [address] [place] [address] Phillip Galindo MD 11/17/2024 11:08 AM CDT - 11/17/2024 11:59 PM CDT Hospital Encounter [facility] Diagnostic XR [id number] [facility] [place] [address] Rater, Sammy Winston MD Discharge Disposition: Home or Self Care 11/17/2024 8:45 AM CDT - 11/17/2024 11:59 PM CDT Hospital Encounter [facility] Pre Surgical Assessment [address] [place] [address] Phillip Galindo MD Discharge Disposition: Home or Self Care 11/17/2024 Telephone [facility] Neurosurgery [address] [place] [phone] Phillip Galindo MD Physical Therapy - Surgery Auth Status 11/16/2024 11:59 PM CDT Anesthesia Event [facility] Operating Room [address] [facility] [place] [address] Inessa Nelson PA-C 10/28/2024 Telephone [facility] Neurosurgery [address] [place] [phone] Phillip Galindo MD Question 10/27/2024 9:30 AM CDT Office Visit [facility] Neurosurgery [address] [facility] [address] [facility] [address] [place] [phone] Phillip Galindo MD Preop examination (Primary Dx); Lumbar stenosis with neurogenic claudication 10/23/2024 Abstract [facility] Neurosurgery [facility] [address] [facility] [address] [place] [phone] Phillip Galindo MD 10/07/2024 External Device Data [facility] ABSTRACTION Provider, Abstract 09/26/2024 External Device Data [facility] ABSTRACTION Provider, Abstract 09/25/2024 External Device Data [facility] ABSTRACTION Provider, Abstract 09/23/2024 External Device Data [facility] ABSTRACTION Provider, Abstract from Last 3 Months Family History Relation Name Status Comments Father Mother Social History Tobacco Use Types Packs/Day Years Used Date Smoking Tobacco: Former Cigarettes 1976 Smokeless Tobacco: Never Tobacco Cessation:Counseling Given: Not Answered Alcohol Use Standard Drinks/Week Comments Never 0 [...] Sign Reading Time Taken Comments Blood Pressure 110/73 11/17/2024 9:08 AM CDT Pulse 63 11/17/2024 9:08 AM CDT Temperature 36.6 C (97.9 F) 10/27/2024 9:06 AM CDT Respiratory Rate 16 10/27/2024 9:06 AM CDT Oxygen Saturation 99% 11/17/2024 9:08 AM CDT Inhaled Oxygen Concentration - - Weight 84.6 kg (186 lb 9.6 oz) 11/17/2024 9:08 A M CDT Height 165.1 cm (5' 5 ) 11/17/2024 9:08 AM CDT Body Mass Index 31.05 11/17/2024 9:08 AM CDT Plan of Treatment Upcoming Encounters Date Type Department Care Team (Latest Contact Info) Description 12/28/2024 9:00 AM CDT Hospital Encounter [facility] Operating Room [address] [place] [phone] Phillip Galindo MD [address] [facility] [address] [place] [address] 12/28/2024 9:00 AM CDT - 12/28/2024 12:23 PM CDT Surgery [facility] Operating Room [address] [place] [address] Phillip Galindo MD [address] [facility] [address] [place] [address] POSTERIOR LUMBAR DECOMPRESSION AND FUSION L3 TO L4, WITH INSTRUMENTATION AND REVISION OF PRIOR HARDWARE L4 TO S1 AND REEXPLORATION/DECOMPRE SSION RIGHT L5S1 Scheduled Procedures Name Priority Associated Diagnoses Date/Ti me LUMBAR FUSION POSTERIOR - MULTILEVEL M48.062 12/28/2024 9:00 AM CDT Health Maintenance Due Date Last Done Comments DTAP/TDAP/TD VACCINES (1 - Tdap) 1972 BREAST CANCER SCREENING 1993 COLORECTAL SCREENING 1998 Colorectal Cancer Screening 1998 FIT-DNA Q 3 years 1998 FIT/FOBT Q 1 year 1998 Flex Sig/CT Colonography Q 5 years 1998 PNEUMOCOCCAL VACCINE 50+ YEARS (1 of 1 - PCV) 10/26/19 04 ZOSTER VACCINE (1 of 2) 10/26/2003 OSTEOPOROSIS SCREENING 2018 INFLUENZA VACCINE (#1) 2024 RSV VACCINE (60+ or ) (1 - 1-dose 75+ series) 2028 Procedures Procedure Name Priority Date/Time Associated Diagnosis Comments XR CHEST PA AND LATERAL 2 VW Routine 11/17/2024 11:22 AM CDT Preop examination EKG 12-LEAD Routine 11/17/2024 10:31 AM CDT TYPE AND SCREEN Routine 11/17/2024 10:01 AM CDT Lumbar stenosis with neurogenic claudication EXTRA TUBE (URINE TREVIÑO) Routine 11/17/2024 10:01 AM CDT Preop examination COMPREHENSIVE METABOLIC PANEL Routine 11/17/2024 10:01 AM CDT Preop examination URINALYSIS WITH REFLEX CULTURE Routine 11/17/2024 10:01 AM CDT Preop examination PROTIME-INR Routine 11/17/2024 10:01 AM CDT Preop examination PTT Routine 11/17/2024 10:01 AM CDT Preop examination CBC WITH DIFFERENTIAL Routine 11/17/2024 10:01 AM CDT Preop examination from Last 3 Months Results * XR CHEST PA AND LATERAL 2 VW (11/17/2024 11:22 AM CDT) Anatomical Region Laterality Modality Chest Computed Radiogr aphy 11/17/2024 11:2 4 AM CDT Impressions 11/17/2024 12:02 PM CDT IMPRESSION: Negative DICTATION LOCATION: [address] Narrative 11/17/2024 12:02 PM CDT CHEST TWO VIEWS DATE: 11/17/2024 11:22 AM HISTORY: Preoperative evaluation FINDINGS: Heart size is normal and the lungs are clear and no pneumothorax or pleural effusion is seen. Procedure Note Rom Thompson MD - 11/17/2024 CHEST TWO VIEWS DATE: 11/17/2024 11:22 AM HISTORY: Preoperative evaluation FINDINGS: Heart size is normal and the lungs are clear and no pneumothorax or pleural effusion is seen. IMPRESSION: Negative DICTATION LOCATION: [address] us Sammy Aquino MD DIAGNOSTIC IMAGING ORDERABLES Final Result * EKG 12-LEAD (11/17/2024 10:31 AM CDT) 11/17/2024 10:3 1 AM CDT Narrative INTERFACE SYSTEM - 11/17/2024 10:38 AM CDT [address] [address] Test Date: 2024-11-17 Pat Name: RIVKA GOLDSTEIN Department: 88 Room: Gender: Female Healthcare Recruiter: : 1955 Requested By: PHILLIP Engel Order Number: [id number] Man MD: Neel Robb Measurements Intervals [place] Rate: 59 P: -6 SC: 180 QRS: 22 QRSD: 78 T: 32 QT: 388 QTc: 384 Interpretive Statements Sinus bradycardia Poor R wave progression Abnormal ECG No previous ECG available for comparison Electronically Signed On 11-17-2024 10:38:06 CDT by Neel Robb Procedure Neel Grayson MD - 11/17/[address] [address] Test Date: 2024-11-17 Pat Name: RIVKA GOLDSTEIN Department: 88 Room: Gender: Female Healthcare Recruiter: : 1955 Requested By: PHILLIP Engel Order Number: [id number] Man MD: Neel Robb Measurements Intervals [place] Rate: 59 P: -6 SC: 180 QRS: 22 QRSD: 78 T: 32 QT: 388 QTc: 384 Interpretive Statements Sinus bradycardia Poor R wave progression Abnormal ECG No previous ECG available for comparison Electronically Signed On 11-17-2024 10:38:06 CDT by Neel Robb us Phillip Galindo MD ECG ORDERABLES Final Result INTERFACE SYSTEM Refer to clinic/hospital department * EXTRA TUBE (URINE TREVIÑO) (11/17/2024 10:01 AM CDT) Urine URINE SPECIMEN OBTAINED BY CLEAN CATCH PROCEDURE / Unknown Collection / Unknown 11/17/2024 10:01 AM CDT 11/17/2024 10:29 AM CDT us Phillip Galindo MD URINE ORDERABLES Final Result [facility] CLIA# [id number] [place] [address] * (ABNORMAL) URINALYSIS WITH REFLEX CULTURE (11/17/2024 10:01 AM CDT) COLOR UA Yellow Pale to Dark Yellow 11/17/2024 10:40 AM CDT [facility] CLARITY UA Clear Clear 11/17/2024 10:40 AM CDT [facility] SPECIFIC GRAVITY UA 1.018 1.003 - 1.035 11/17/2024 10:40 AM CDT [facility] PH UA 5.0 5.0 - 8.0 11/17/2024 10:40 AM CDT [facility] LEUKOCYTE ESTERASE UA Trace(A) Negative 11/17/2024 10:40 AM CDT [facility] Comment:For patient s with 'trace' results, consider ordering a culture and sensitivity if clinically indicated. NITRITE UA Negative Negative 11/17/2024 10:40 AM CDT [facility] PROTEIN UA Negative Negative 11/17/2024 10:40 AM CDT [facility] GLUCOSE UA Negative Negative 11/17/2024 10:40 AM CDT [facility] KETONES UA Negative Negative 11/17/2024 10:40 AM CDT [facility] UROBILINOGEN UA Normal <2.0 mg/dL 10:40 AM CDT [facility] BILIRUBIN UA Negative Negative 11/17/2024 10:40 AM CDT [facility] BLOOD UA Negative Negative 11/17/2024 10:40 AM CDT [facility] WBC UA 0-2 0 - 2 /hpf 11/17/2024 10:40 AM CDT [facility] RBC UA 3-5(A) 0 - 2 /hpf 11/17/2024 10:40 AM CDT [facility] BACTERIA UA 1+(A) Negative /hpf 11/17/2024 10:40 AM CDT [facility] EPITHELIAL CELLS, URINE 0-5 0 - 5 /hpf 11/17/2024 10:40 AM CDT [facility] HYALINE CAST None Seen None Seen, 0-2 /lpf 11/17/2024 10:40 AM CDT [facility] Urine URINE SPECIMEN OBTAINED BY CLEAN CATCH PROCEDURE / Unknown Collection / Unknown 11/17/2024 10:01 AM CDT 11/17/2024 10:29 AM CDT Phillip Galindo MD URINE ORDERABLES Final Result [facility] CLIA# [id number] [place] [address] * (ABNORMAL) CBC WITH DIFFERENTIAL (11/17/2024 10:01 AM CDT) WBC 6.4 4.0 - 9.8 K/uL 11/17/2024 10:35 AM CDT [facility] [employer] [facility] RBC 4.44 3.90 - 4.90 M/uL 11/17/2024 10:35 AM CDT [facility] [employer] [facility] HEMOGLOBIN 13.1 11.8 - 14.8 g/dL 11/17/2024 10:35 AM CDT [facility] [employer] [facility] HEMATOCRIT 41.3 35.5 - 44.0 % 11/17/2024 10:35 AM CDT [facility] [employer] [facility] MCV 93.0 82.0 - 99.0 fL 11/17/2024 10:35 AM CDT [facility] [employer] [facility] MCH 29.5 27.2 - 32.6 pg 11/17/2024 10:35 AM CDT [facility] [employer] [facility] MCHC 31.7 31.5 - 35.5 g/dL 11/17/2024 10:35 AM CDT [facility] [employer] [facility] RDW 12.0 11.5 - 14.5 % 11/17/2024 10:35 AM CDT [facility] LABORATORY [facility] RDW-STDEV 41.2 37.1 - 48.7 fL 11/17/2024 10:35 AM CDT [facility] LABORATORY SERVICES [facility] PLATELETS 248 140 - 350 K/uL 11/17/2024 10:35 AM CDT [facility] LABORATORY SERVICES [facility] MPV 9.0(L) 9.3 - 12.4 fL 11/17/2024 10:35 AM CDT [facility] LABORATORY SERVICES [facility] NEUTROPHILS 72 % 11/17/2024 10:35 AM CDT [facility] LABORATORY SERVICES [facility] LYMPHOCYTES 17 % 11/17/2024 10:35 AM CDT [facility] LABORATORY SERVICES [facility] MONOCYTES 7 % 11/17/2024 10:35 AM CDT [facility] LABORATORY SERVICES [facility] EOSINOPHILS 3 % 11/17/2024 10:35 AM CDT [facility] LABORATORY SERVICES [facility] BASOPHILS 1 % 11/17/2024 10:35 AM CDT [facility] LABORATORY [facility] IMMATURE GRANULOCYTES 0 % 11/17/2024 10:35 AM CDT [facility] LABORATORY SERVICES [facility] NEUTROPHIL ABSOLUTE 4.57 1.90 - 7.00 K/uL 11/17/2024 10:35 AM CDT [facility] LABORATORY SERVICES [facility] LYMPHOCYTE ABSOLUTE 1.10 0.70 - 4.50 K/uL 11/17/2024 10:35 AM CDT [facility] LABORATORY SERVICES [facility] MONOCYTE ABSOLUTE 0.45 0.10 - 1.30 K/uL 11/17/2024 10:35 AM CDT [facility] LABORATORY SERVICES [facility] EOSINOPHIL ABSOLUTE 0.17 0.00 - 0.70 K/uL 11/17/2024 10:35 AM CDT [facility] LABORATORY SERVICES [facility] BASOPHILS ABSOLUTE 0.06 0.00 - 0.20 K/uL 11/17/2024 10:35 AM CDT [facility] LABORATORY SERVICES [facility] IMMATURE GRANULOCYTES ABSOLUTE 0.01 0.00 - 0.03 K/uL 11/17/2024 10:35 AM CDT [facility] LABORATORY SERVICES [facility] Blood Venipuncture / Unknown 11/17/2024 10:01 AM CDT 11/17/2024 10:32 AM CDT Phillip Galindo MD HEMATOLOGY ORDERABLES Final Re sult [facility] [id number] [place] [address] * PTT (11/17/2024 10:01 AM CDT) PTT 23.9 23.1 - 37.1 seconds 11/17/2024 10:59 AM CDT [facility] Blood Venipuncture / Unknown 11/17/2024 10:01 AM CDT 11/17/2024 10:31 AM CDT Phillip Galindo MD HEMATOLOGY ORDERABLES Final Re sult Performing Organization Address [facility] Co de Phone Number [facility]# [id number] [place] [address] * PROTIME-INR (11/17/2024 10:01 AM CDT) PROTIME 13.2 11.5 - 14.7 Seconds 11/17/2024 10:59 AM CDT [facility] INR 1.0 0.9 - 1.1 11/17/2024 10:59 AM CDT [facility] Blood Venipuncture / Unknown 11/17/2024 10:01 AM CDT 11/17/2024 10:31 AM CDT Phillip Galindo MD HEMATOLOGY ORDERABLES Final Re sult Performing Organization Address City/[facility]/ZIP Co de Phone Number [facility]# [id number] [place] [address] * TYPE AND SCREEN (11/17/2024 10:01 AM CDT) ABO GROUP B 11/17/2024 11:39 AM CDT [facility] RH (D) TYPE Positive 11/17/2024 11:39 AM CDT [facility] ANTIBODY SCREEN Negative 11:39 AM CDT [facility] Comment:t/s exp-12/03/2024, verification needed Blood Venipuncture / Unknown 11/17/2024 10:01 AM CDT 11/17/2024 10:29 AM CDT Phillip Galindo MD BLOOD BANK ORDERABLES Edited R esult - Final [facility] CLIA# [id number] [place] [address] * (ABNORMAL) COMPREHENSIVE METABOLIC PANEL (11/17/2024 10:01 AM CDT) SODIUM 138 136 - 145 mmol/L 11/17/2024 11:03 AM T [facility] POTASSIUM 5.0 3.4 - 5.1 mmol/L 11/17/2024 11:03 AM T [facility] CHLORIDE 100 98 - 107 mmol/L 11/17/2024 11:03 AM T [facility] CO2 25 22 - 29 mmol/L 11/17/2024 11:03 AM T [facility] CALCIUM 10.2 8.6 - 10.4 mg/dL 11/17/2024 11:03 AM T [facility] BUN 32(H) 6 - 20 mg/dL 11/17/2024 11:03 AM T [facility] CREATININE 0.91 0.51 - 0.95 mg/dL 11/17/2024 11:03 AM T [facility] LABORATORY [facility] Comment:The GFR result is no t clinically significant on patients <18 or >70 years of age. GLUCOSE 92 74 - 99 mg/dL 11/17/2024 11:03 AM T [facility] TOTAL PROTEIN 7.6 6.3 - 8.7 g/dL 11/17/2024 11:03 AM [facility] ALBUMIN 4.5 3.5 - 5.2 g/dL 11/17/2024 11:03 AM [facility] BILIRUBIN TOTAL 0.3 0.2 - 1.1 mg/dL 11/17/2024 11:03 AM [facility] ALKALINE PHOSPHATASE 101 40 - 150 U/L 11/17/2024 11:03 AM [facility] AST 24 0 - 33 U/L 11/17/2024 11:03 AM [facility] ALT 18 0 - 33 U/L 11/17/2024 11:03 AM [facility] GFR >60 mL/min/1.7 3 sq meter 11/17/2024 11:03 AM [facility] Comment:eGFR calculated with 2020 CKD-EPI equation. Vegetarian diet, extremely high or low muscle mass, and may affect results. Cystatin C with Glomerular Filtration Rate is a suitable alternative for these patients. ANION GAP 13 8 - 16 mmol/L 11/17/2024 11:03 AM [facility] Blood Venipuncture / Unknown 11/17/2024 10:01 AM CDT 11/17/2024 10:31 AM CDT Sammy Aquino MD CHEMISTRY ORDERABLES Final Res ult [facility] CLIA# [id number] [place] [address] from Last 3 Months Insurance [employer] O MCR Care Teams Mink Slicer Relationship Specialty Start Date End Date Neel Ortiz MD [address] [place] [phone] PCP - General Family Practice 10/24/23
--- OUTSIDE RECORDS SUMMARY | 2024-12-12 11:06 | XMS_ITS | Clinical Summary ---
Author Organization [facility] [address] Address [address] [place] [address] Care Team Providers Care Gas Analyst Name Role Phone Neel Ortiz MD Primary Care Provider [phone] Allergies No known active allergies Medications naproxen [...] 06/12/2022 Assessment & Plan (06/16/2024 5:55 PM REGIONAL COMMERCIAL SALES MANAGER): No change. Assessment & Plan (12/11/2023 8:56 AM CDT): Unchanged. Needs no intervention. Assessment & Plan (08/27/2023 9:06 AM REGIONAL COMMERCIAL SALES MANAGER): Unchanged. Possibly sinusitis. Will treat. Assessment & Plan (06/12/2023 9:14 AM REGIONAL COMMERCIAL SALES MANAGER): Needs no intervention. Assessment & Plan (12/11/2022 8:18 AM CDT): Unchanged and overall asymptomatic Assessment & Plan (06/12/2022 8:53 PM REGIONAL COMMERCIAL SALES MANAGER): Unchanged and clinically not bothering her. I have recommended no intervention. Dysfunction of right eustachian tube 06/12/2022 Assessment & Plan (06/16/2024 5:57 PM REGIONAL COMMERCIAL SALES MANAGER): The right ear looks good. Tubes in [...] ear. Assessment & Plan (08/27/2023 9:06 AM REGIONAL COMMERCIAL SALES MANAGER): I recommended a myringotomy on the left side. No tube was placed today. She understands that if her symptoms recur she can come back and we would probably put a tube in that case. Otherwise everything seems be okay I will see her at her regularly scheduled appointment in November. Assessment & Plan (06/12/2023 9:15 AM REGIONAL COMMERCIAL SALES MANAGER): The T-tube is in good position and appears to be functioning well. Recommended keeping it in place. Follow up in 6 months. Assessment & Plan (12/11/2022 8:19 AM CDT): Tube is still in good position and functioning normally. I recommended a follow- up in about 6 months to check this. He understands. Assessment & Plan (06/12/2022 8:53 PM REGIONAL COMMERCIAL SALES MANAGER): Her ear looks pretty good. Tube is still in good position. I recommended continued surveillance and would like to see her in about 6 months. She is fine with that. Impacted cerumen of right ear 06/12/2022 Assessment & Plan (06/12/2023 9:15 AM REGIONAL COMMERCIAL SALES MANAGER): This was partially occluding the ear canal. Removed without difficulty. Assessment & Plan (06/12/2022 8:54 PM REGIONAL COMMERCIAL SALES MANAGER): It was quite a bit of wax buildup in the canal on the right side. I had to remove this to see the tube beneath it. Everything looks fine otherwise. Surgical History Surgery Date Site/Laterality Comments POSTERIOR FUSION LUMBAR SPINE 11/19/2013 - 12/19/2013 L5-S1 PSF ([facility]) LEG SURGERY TYMPANOSTOMY TUBE PLACEMENT SPINAL CORD STIMULATOR IMPLANT 12/20/2014 - 01/18/2015 Placement of Spinal Cord Stimulator - [employer]tronic ([facility]) ANTERIOR FUSION CERVICAL SPINE 04/21/2012 - 05/21/2012 C5-6 ACDF ([facility]) LEG SURGERY 07/22/2011 - 07/21/2012 Fracture repair Medical History Medical History Date Comments Allergic rhinitis Ear problems Vertigo High cholesterol HTN (hypertension) Arthritis Family History Medical History Relation Name Comments No Known Problems Father No Known Problems Mother Relation Name Status Comments Father Mother Social [...] on file Legal Sex Female 10:47 AM REGIONAL COMMERCIAL SALES MANAGER Gender Identity Not on file Sexual Orientation Not on file Obstetrics History Last Filed Vital Signs Vital Sign Reading Time Taken Comments Blood Pressure 92/57 03/07/2023 2:32 PM CDT Pulse 69 03/07/2023 2:32 PM CDT Temperature 36.7 C (98.1 F) 12/06/2020 8:34 AM CDT Respiratory Rate 20 06/16/2024 9:19 AM [employer]IONAL COMMERCIAL SALES MANAGER Oxygen Saturation - - Inhaled Oxygen Concentration - - Weight 77.1 kg (170 lb) 06/16/2024 9:19 AM REGIONAL COMMERCIAL SALES MANAGER Height 167.6 cm (5' 6 ) 06/16/2024 9:19 AM REGIONAL COMMERCIAL SALES MANAGER Body Mass Index 27.44 06/16/2024 9:19 AM REGIONAL COMMERCIAL SALES MANAGER Plan of Treatment Health Maintenance Due Date Last Done Comments Breast Cancer Screening-Mammogram 1955 Colon Cancer Screening-Colonoscopy 1955 Fall Risk Assessment 1955 Hepatitis C Screening 1955 Osteoporosis Screening-Bone Density Scan 1955 DTaP/Tdap/Td Vaccine (1 - Tdap) 1964 Hepatitis B Screening 10/26/1971 Zoster Vaccine (1 of 2) 10/26/2003 Well Visit 65+ 2018 Pneumococcal vaccine 65+ (2 of 2 - PPSV23) 04/17/2020 04/17/2019 Depression Screening 03/07/2024 03/07/2023 Influenza Vaccine (Season Ended) 2025 04/17/2019, 04/02/2018, 04/23/2017, Additional history exists Insurance [employer] [facility] Care Teams Gas Analyst Relationship Specialty Start Date End Date Neel Ortiz MD PCP - General Family Practice 03/07/23
[2024-12-12 11:21] LABS: Basophils Absolute Auto 0.1 K/mm3 (0.0-0.1); Basophils Percent Auto 0.8 % (0.2-1.2); Eosinophils Absolute Auto 0.2 K/mm3 (0-0.3); Eosinophils Percent Auto 2.9 % (0-4.4); Hematocrit 42.5 % (37.0-47.0); Hemoglobin 13.3 g/dL (12.0-15.0); Immature Granulocyte Absolute 0.02 K/mm3 (0.00-0.031); Immature Granulocyte Percent A 0.3 % (0-0.5); Lymphocytes Absolute Auto 1.18 K/mm3 (0.9-3.2); Mean Corpuscular HGB Conc 31.3 g/dl (32-36); Mean Corpuscular Hemoglobin 29.3 pg (26-34); Mean Corpuscular Volume 93.6 fl (80-100); Mean Platelet Volume 9.1 fl (7.4-10.4); Monocytes Absolute Auto 0.5 K/mm3 (0.1-0.6); Monocytes Percent Auto 8.1 % (2.6-8.5); Neutrophils Absolute Auto 4.6 K/mm3 (1.3-6.7); Neutrophils Percent Auto 69.9 % (45.5-73.1); Platelet Count Result 244 k/mm3 (150-375); Red Blood Count 4.54 M/mm3 (4.2-5.4); Red Cell Distribution Width 12.2 % (11.5-14.5); White Blood Count 6.6 K/mm3 (4.5-10.0)
[2024-12-12 11:34] LABS: Anion Gap 7 mmol/L (4-12); Blood Urea Nitrogen 29 mg/dL (7-17); Calcium 9.5 mg/dL (8.4-10.2); Carbon Dioxide 28 mmol/L (22-30); Chloride 103 mmol/L (98-107); Estimated Glomerular Filt Rate > 60; Glucose 83 mg/dL (65-110); Potassium 5.2 mmol/L (3.4-5.0); Sodium 138 mmol/L (137-145)
[2024-12-12 11:39] LABS: Add Urine Microscopic? YES; Appearance Urine Clear (Clear); Bacteria Urine None Seen /hpf; Bilirubin Urine Negative (Negative); Blood Urine Negative (Negative); Color Urine Yellow (Yellow); Glucose Urine UA Negative (Negative); Ketones Urine Negative (Negative); Leukocyte Esterase Ur 2+ LEU/UL (Negative); Nitrate Urine Negative (Negative); Non Pathogenic Casts 0-2; Protein Urine Negative (Negative); RBC Urine 0-2 /hpf (0-2); Specific Grav Ur 1.015 (1.001-1.035); Squamous Epithelial Cell Urine None Seen /hpf (Few); Urobilinogen Urine 0.2 mg/dL (<2.0); pH Urine 5.5 (5.0-9.0)
[2024-12-12 11:47] LABS: Prothrombin Time 13.2 Seconds (11.1-14.7)
[2024-12-12 11:49] LABS: Partial Thromboplastin Time 22.7 Seconds (22.3-36.8)
== END 2024-12-12 10:55 | disposition home or self-care (01) ==
PROVIDERS: PCP Family Medicine; Visit Provider Neurological Surgery
DX: M48.062 Spinal stenosis, lumbar region with neurogenic claudication (principal); M79.609 Pain in unspecified limb; T85.192A Other mechanical complication of implanted electronic neurostimulator of spinal cord electrode (lead), initial encounter; Z01.818 Encounter for other preprocedural examination
CPT/HCPCS: 36415; 80048; 81001; 85025; 85610; 85730

== ENCOUNTER 2025-01-09 10:55 | Outpatient (CLI) | payer MEDICARE, SELFPAY ==
[2025-01-09 11:59] LABS: Basophils Percent Auto 0.6 % (0.2-1.2); Eosinophils Absolute Auto 0.1 K/mm3 (0-0.3); Eosinophils Percent Auto 2.1 % (0-4.4); Hemoglobin 13.1 g/dL (12.0-15.0); Immature Granulocyte Absolute 0.02 K/mm3 (0.00-0.031); Immature Granulocyte Percent A 0.3 % (0-0.5); Lymphocytes Absolute Auto 1.22 K/mm3 (0.9-3.2); Lymphocytes Percent Auto 18.7 % (18.3-44.2); Mean Corpuscular HGB Conc 31.2 g/dl (32-36); Mean Corpuscular Hemoglobin 28.7 pg (26-34); Mean Corpuscular Volume 91.9 fl (80-100); Mean Platelet Volume 9.1 fl (7.4-10.4); Monocytes Absolute Auto 0.4 K/mm3 (0.1-0.6); Monocytes Percent Auto 6.7 % (2.6-8.5); Neutrophils Absolute Auto 4.7 K/mm3 (1.3-6.7); Neutrophils Percent Auto 71.6 % (45.5-73.1); Platelet Count Result 240 k/mm3 (150-375); Red Blood Count 4.57 M/mm3 (4.2-5.4); Red Cell Distribution Width 12.2 % (11.5-14.5); White Blood Count 6.5 K/mm3 (4.5-10.0)
[2025-01-09 12:01] LABS: Add Urine Microscopic? NO; Appearance Urine Clear (Clear); Bilirubin Urine Negative (Negative); Blood Urine Negative (Negative); Color Urine Yellow (Yellow); Glucose Urine UA Negative (Negative); Ketones Urine Trace mg/dL (Negative); Leukocyte Esterase Ur Negative LEU/UL (Negative); Nitrate Urine Negative (Negative); Protein Urine Negative (Negative); Specific Grav Ur 1.023 (1.001-1.035); pH Urine 5.5 (5.0-9.0)
[2025-01-09 12:09] LABS: INR 0.9; Prothrombin Time 12.3 Seconds (11.1-14.7)
[2025-01-09 12:10] LABS: Partial Thromboplastin Time 23.3 Seconds (22.3-36.8)
[2025-01-09 12:13] LABS: Anion Gap 9 mmol/L (4-12); Blood Urea Nitrogen 26 mg/dL (7-17); Calcium 9.7 mg/dL (8.4-10.2); Carbon Dioxide 28 mmol/L (22-30); Chloride 103 mmol/L (98-107); Estimated Glomerular Filt Rate > 60; Glucose 91 mg/dL (65-110); Potassium 5.2 mmol/L (3.4-5.0); Sodium 140 mmol/L (137-145)
== END 2025-01-09 10:56 | disposition home or self-care (01) ==
PROVIDERS: PCP Family Medicine; Visit Provider Neurological Surgery
DX: M48.062 Spinal stenosis, lumbar region with neurogenic claudication (principal); Z01.818 Encounter for other preprocedural examination
CPT/HCPCS: 36415; 80048; 81003; 85025; 85610; 85730

== ENCOUNTER 2025-04-01 10:14 | Outpatient (CLI) | payer MEDICARE, SELFPAY ==
--- NOTE | ~2025-04-01 | MM_ITS ---
EXAMINATION: MM screening joshua BI w darryl HISTORY: Screening TECHNIQUE: Craniocaudal and mediolateral oblique 3-D tomosynthesis images were obtained and synthetic 2-D images were generated. CAD analysis was submitted and interpreted. COMPARISON: Comparison to multiple prior studies sequentially, with oldest reviewed study dated , 09/19/2020 BREAST PARENCHYMAL COMPOSITION: There are scattered areas of fibroglandular density. FINDINGS: There is no evidence of suspicious mass, calcification, or architectural distortion to suggest malignancy in either breast. IMPRESSION: 1. No mammographic evidence of malignancy. 2. Recommend routine screening mammography in one year. BI-RADS Category 1: Negative Reviewed, dictated and finalized at location B.
--- NOTE | ~2025-04-01 | DEXA_ITS ---
Bone Density Report Name: LISSETH THAO Age: 69 Sex: Female Ethnicity: White Date of : 1955 Indication: osteopenia; monitoring treatment; height loss; Referring Provider: NITISH RIVAS Study: Bone densitometry was performed. Exam Date: April 01, 2025 Accession number: [id number] Bone Density: Region BMD T-score Z-score Classification Femoral Neck (Left) 0.582 -2.4 -0.5 Osteopenia Total Hip (Left) 0.803 -1.1 0.4 Osteopenia Femoral Neck (Right) 0.508 -3.1 -1.2 Osteoporosis Total Hip (Right) 0.705 -1.9 -0.4 Osteopenia Total Hip Mean 0.754 -1.5 0.0 Osteopenia World Health Organization criteria for BMD impression classify patients as: Normal (T-score at or above -1.0), Osteopenia (T-score between -1.0 and -2.5), or Osteoporosis (T-score at or below -2.5). 10-year Fracture Risk: FRAX not reported because: Some T-score for Spine Total or Hip Total or Femoral Neck at or below -2.5 Treated for osteoporosis Previous Exams: -- Region Exam Age BMD T-score BMD Change BMD Change Date g/cm2 vs Baseline vs Previous -- Total Hip(Left) 04/01/2025 69 0.803 -1.1 -3.3%* -0.4% 02/20/2023 67 0.806 -1.1 -2.9% -2.9% 09/19/2020 64 0.830 -0.9 Total Hip(Right) 04/01/2025 69 0.705 -1.9 0.0% 1.3% 02/20/2023 67 0.696 -2.0 -1.2% -1.2% 09/19/2020 64 0.704 -1.9 -- *Denotes significance at 95% confidence level, LSC for Total Hip = 0.027 g/cm2 Clinical Information Provided by Patient: Is being treated for osteoporosis Has used the following medications: Fosamax (i.e. alendronate), Vitamin D, Calcium Has the following medical conditions: L-spine surgery Patient maximum height was 67 Menopause Age: 40 No regular weight bearing exercise Drinks caffeinated beverages Onset of menses at age 11 Number of children 2 Impression: The patient has osteoporosis, based on the Right Femoral Neck T-score. No significant bone loss was observed. Discussion: PATIENT UNDER TREATMENT WITH NO SIGNIFICANT BMD LOSS SINCE LAST EXAM. In an untreated patient, BMD typically declines with age. A lack of decline or gain is usually a sign that treatment is efficacious and fracture risk is reduced. It is important to ask patients whether they are taking their medications and to encourage continued and appropriate compliance with their osteoporosis therapies to reduce fracture risk. It is also important to review their risk factors and encourage appropriate calcium and vitamin D intakes, exercise, fall prevention and other lifestyle measures. Follow-Up: Consider a repeat BMD and Vertebral Fracture Assessment (VFA) exam in 2 years or sooner if medically necessary, to reassess this patient's status. Reported by: KAMERON on 04/01/2025 10:39:00 AM. Reviewed, dictated and finalized at location A.
== END 2025-04-01 10:15 | disposition home or self-care (01) ==
LOC: MICIMG 10:14
PROVIDERS: PCP Family Medicine; Visit Provider Family Medicine
DX: Z12.31 Encounter for screening mammogram for malignant neoplasm of breast (principal); Z78.0 Asymptomatic menopausal state; M85.88 Other specified disorders of bone density and structure, other site; M85.852 Other specified disorders of bone density and structure, left thigh; M85.851 Other specified disorders of bone density and structure, right thigh; M81.0 Age-related osteoporosis without current pathological fracture
CPT/HCPCS: 77063; 77067; 77080